=== PATIENT | female | born 1955 | race Caucasian/White ===

== ENCOUNTER 2020-12-30 12:21 | Emergency (ER) | payer MEDICARE, OTHER ==
[~2020-12-30 12:21] MED LIST: AMLODIPINE-BEN1 EAC3 PO; AMPHETAMINE SAL10 MG PO; ANTIVERT25 MG PO; DICLOFENAC SODI50 MG PO; ESTRADIOL1 MG PO; LAMOTRIGINE200 MG PO; LIPITOR 10MG TA10 MG PO; METHOCARBAMOL500 MG PO; MOBIC7.5 MG PO; PANTOPRAZOLE SO40 MG PO; PRAMIPEXOLE DI0.5 MG PO; TRIAMTERENE-HC1 EACH PO; VOLTAREN **OUT75 MG PO; VOLTAREN100 GM TOP; ZOFRAN4 MG PO
[2020-12-30] MEDS ORDERED: ATORVASTATIN CA10 MG PO (12:44)
[2020-12-30] MEDS ORDERED: DESYREL50 MG PO (12:48)
[2020-12-30] MEDS ORDERED: LAMICTAL100 MG PO (12:50)
[2020-12-30] MEDS ORDERED: NORCO 5-325 TA1 EACH PO (15:51)
== END 2020-12-30 16:12 | disposition home or self-care (01) ==
LOC: FER 12:21
DX: S92.331A Displaced fracture of third metatarsal bone, right foot, initial encounter for closed fracture (principal); I10 Essential (primary) hypertension; E78.5 Hyperlipidemia, unspecified; W18.2XXA Fall in (into) shower or empty bathtub, initial encounter; Y92.009 Unspecified place in unspecified non-institutional (private) residence as the place of occurrence of the external cause
CPT/HCPCS: 73610; 73630